=== PATIENT | female | born 1985 | race Caucasian/White ===

== ENCOUNTER → 2017-02-07 | Outpatient (CLI) | payer OTHER, SELFPAY | PROVIDERS: Visit Provider Nurse Practitioner Obstetrics & Gynecology | DX: Z01.419 Encounter for gynecological examination (general) (routine) without abnormal findings (principal) | CPT/HCPCS: 36415; 86592; 86703; 86704; 86708; 86790; 86803; 87340; G0432 ==

== ENCOUNTER → 2018-11-25 14:13 | Outpatient (CLI) | payer OTHER, SELFPAY ==
[2018-11-25 14:48] LABS: Basophils % 0.4 % (0.1-2.0); Eosinophils # 0.1 K/mm3 (0.0-0.4); Eosinophils % 0.6 % (0.1-12.0); Hematocrit 42.5 % (37.0-47.0); Hemoglobin 13.1 g/dL (12.2-16.2); Lymphocytes # 2.1 K/mm3 (0.7-4.5); Lymphocytes % 25.9 % (10-50); Mean Corpuscular HGB Conc 30.9 g/dL (31.8-35.4); Mean Corpuscular Hemoglobin 27.4 pg (27.0-31.2); Mean Corpuscular Volume 88.7 fl (81-99); Mean Platelet Volume 7.5 fl (7.4-10.4); Monocytes # 0.4 K/mm3 (0.1-1.0); Neutrophils # 5.6 K/mm3 (1.8-7.8); Neutrophils % 68.1 % (37.0-80.0); Platelet Count 347 K/mm3 (142-424); Red Cell Distribution Width 13.9 % (11.5-17.5); White Blood Count 8.2 K/mm3 (4.8-10.8)
[2018-11-25 15:28] LABS: Alanine Aminotransferase 36 U/L (12-78); Albumin Level 4.2 gm/dL (3.4-5.0); Albumin/Globulin Ratio 1.4 (1.1-1.8); Alkaline Phosphatase 57 U/L (46-116); Anion Gap 13.8 mEq/L (5-15); Aspartate Amino Transferase 18 U/L (15-37); Bilirubin,Total 0.6 mg/dL (0.2-1.0); Blood Urea Nitrogen 17 mg/dL (7-18); Calcium 9.1 mg/dL (8.5-10.1); Carbon Dioxide 26 mmol/L (21.0-32.0); Chloride 103 mmol/L (98-107); Chol/HDL Ratio 5.7 (1-3.5); Cholesterol 171 mg/dL (140-200); Creatinine,Serum 0.75 mg/dL (0.55-1.02); Estimated Glomerular Filt Rate 90 ml/min (>60); GFR (African American) 108 ML/MIN (>60); Glucose 125 mg/dL (74-106); HDL Cholesterol 30 mg/dL (29-89); LDL Cholesterol 100 mg/dL (0-130); Potassium 3.8 mmoL/L (3.5-5.1); Sodium 139 mmol/L (136-145); T4 (Thyroxine) 12.1 ug/dl (4.7-13.3); Thyroid Stimulating Hormone 0.98 uIU/ml (0.358-3.740); Total Protein,Serum 7.2 gm/dL (6.4-8.2); Triglycerides 207 mg/dL (30-200); VLDL Cholesterol 41 mg/dL (0-40)
[2018-11-27 17:09] LABS: FSH 6.7 mIU/mL (.); LH 8.6 mIU/mL (.)
[2018-11-27 17:10] LABS: Vitamin D 25 Hydroxy 17.7 ng/mL (30.0-100.0)
[2018-11-29 20:01] LABS: Estrogen 89 pg/mL (.)
== END ==
PROVIDERS: Visit Provider Physician Assistant
DX: R53.83 Other fatigue (principal); E55.9 Vitamin D deficiency, unspecified; Z79.899 Other long term (current) drug therapy
CPT/HCPCS: 80053; 80061; 82652; 82672; 83001; 83002; 84436; 84443; 85025

== ENCOUNTER → 2018-12-05 12:17 | Outpatient (CLI) | payer OTHER, SELFPAY | PROVIDERS: Visit Provider Physician Assistant | DX: R73.9 Hyperglycemia, unspecified (principal) | CPT/HCPCS: 36415; 83036 ==

== ENCOUNTER 2019-11-02 10:15 | Emergency (ER) | payer OTHER, SELFPAY ==
[2019-11-02 10:23] VITALS: BP 152/98; PULSE 100; RESP 18; O2SAT 99; BMI 28.6
[2019-11-02 10:32] LABS: UTC Strep Screen (Rapid) Negative (Negative)
--- NOTE | 2019-11-02 10:38 | HMH.EDUTC ---
[facility] [place] Disposition Clinical Impression: Pharyngitis Qualifiers: Pharyngitis/tonsillitis etiology: unspecified etiology Qualified Code(s): J02.9 - Acute pharyngitis, unspecified Sinusitis Qualifiers: Sinusitis location: unspecified location Chronicity: acute Recurrence: non-recurrent Qualified Code(s): J01.90 - Acute sinusitis, unspecified Disposition: Home, Self-Care Condition on Discharge: Good Instructions: Sinusitis, DI for Pharyngitis/Tonsillopharyngitis -- Adult, DI for Sinusitis Additional Instructions: Drink plenty of fluids. Take tylenol or ibuprofen for pain or fever. Take the medications as directed. Follow up with your regular doctor. GO TO THE ER FOR ANY WORSENING SYMPTOMS Prescriptions: Ondansetron [Zofran 4mg ODT] 4 mg PO Q8HP PRN #10 tab.rapdis PRN Reason: Nausea Transmission Status: Received by [email or web address] #[id number] predniSONE [Deltasone 10mg tablet] 10 mg PO BID 3 Days #6 tab Transmission Status: Received by [email or web address] #[id number] Azithromycin [Z-All 250mg Tab*] 250 mg PO UD DOSE PK #6 tab Transmission Status: Received by [email or web address] #[id number] Referrals: Juana Cruz PA [Primary Care Provider] - Forms: Work/School Release Medical Decision Making - Medical Records Medical records reviewed: No: I reviewed the patient's medical records. - Deacon Inquiry Pt receiving controlled substance: No Vital Signs: 11/02/19 10:23 11/02/19 10:52 Temperature 98.6 F Temperature Source Oral Pulse Rate 100 H Pulse Rate [Radial] 100 H Respiratory Rate 18 18 Blood Pressure 152/98 H Blood Pressure [Right Arm] 152/98 H Blood Pressure Mean [Right Arm] 116 Blood Pressure Source Automatic Cuff Blood Pressure Source [Right Arm] Automatic Cuff Blood Pressure Position Sitting Blood Pressure Position [Right Arm] Sitting 02 Sat by Pulse Oximetry 99 Oxygen Delivery Method Room Air Room Air - Lab Data Lab results reviewed: Yes: I reviewed the patient's lab results. Lab Results 11/02/19 10:26: Strep Scn Rapid Clinic Negative Orders (Tests/Meds): ORDERS Category Date Time Status Strep Screen Confirmation Stat Micro 11/02/19 10:26 Received [facility] [place] HPI - General Stated complaint: vomiting, facial and head pain, soa Time Seen by Provider: 11/02/19 10:39 Mode of Arrival: Ambulatory Source of Information: Patient Limitations: No Limitations Description of Symptoms (Recalled from Triage Doc. by RN): vomiting, nose hurts, sore throat. HEENT Symptoms (Recalled from RN notes): Yes Resp Symptoms (Recalled from RN notes): No Skin Symptoms (Recalled from RN notes): No MS Symptoms (Recalled from RN notes): No Functional Status (Recalled from RN notes): wnl - History of Present Illness Provider Complaint: She complains of having sinus pressure for the past 2 days. She started having n/v last night. She denies fever but she has had some chilling today. - Related Data Previous Rx's Medication Instructions Recorded phentermine 37.5 mg tablet 37.5 mg PO DAILY #30 tab 09/18/19 fluconazole 150 mg tablet 150 mg PO Q3D 0 Days #2 tab 10/20/19 Azithromycin [Z-All 250mg Tab*] 250 mg PO UD DOSE PK #6 tab 11/02/19 Ondansetron [Zofran 4mg ODT] 4 mg PO Q8HP PRN #10 tab.rapdis 11/02/19 predniSONE [Deltasone 10mg tablet] 10 mg PO BID 3 Days #6 tab 11/02/19 Allergies Allergy/AdvReac Type Severity Reaction Status Date / Time No Known Allergies Allergy Verified 09/18/19 09:02 - Worker's Comp Is this a Worker's Comp case?: No [facility] History - Hepatitis A Screen Drug use history?: No High risk sexual behaviors?: No History of sexually transmitted infection?: No Currently employed?: No Childcare worker?: No Do you have indoor plumbing?: Yes Do you have electricity?: Yes Attestation statement:: This patient has been screened for Hepatitis A risk factors. I have reviewed the patient's past medical history: Yes Medical History: Reports
[2019-11-02 10:52] VITALS: BP 152/98; PULSE 100; RESP 18; TEMP 37; O2SAT 99
== END 2019-11-02 10:53 | disposition home or self-care (01) ==
PROVIDERS: Emergency Provider Nurse Practitioner Family; PCP Physician Assistant
DX: J02.9 Acute pharyngitis, unspecified (principal); J01.90 Acute sinusitis, unspecified; F41.8 Other specified anxiety disorders; Z90.09 Acquired absence of other part of head and neck; Z90.49 Acquired absence of other specified parts of digestive tract; Z90.79 Acquired absence of other genital organ(s)
CPT/HCPCS: 87880; 99201

== ENCOUNTER 2019-11-24 17:56 | Emergency (ER) | payer OTHER, SELFPAY ==
[2019-11-24 18:44] VITALS: BP 146/84; PULSE 83; RESP 20; TEMP 36.9; O2SAT 100; BMI 29.3
--- NOTE | 2019-11-24 19:00 | HMH.EDUTC ---
[facility] [place] Disposition Clinical Impression: Encounter for laboratory testing for COVID-19 virus, Close exposure to COVID-19 virus Disposition: Home, Self-Care Condition on Discharge: Good Instructions: Preventing the Spread of Coronavirus Discharge Instructions Additional Instructions: *Monitor Temp, Over the counter Motrin or Tylenol as directed/as needed Tylenol every 4 hours and Motrin every 6 hours (as long as your family doctor has told you that you can take it) for fever or pain. and straight to ER if unable to lower temp less than 101.0 after medication given *Warm salt water gargles may help to soothe the throat *Throat Lozenges *Warm fluids like tea with honey may help to soothe the throat *Sleep elevated *Humidifier/Vaporizer *Flonase 2 sprays in each nostril daily but be aware that it may take 2-3 days before you notice improvement Follow up IMMEDIATELY for new or worsening symptoms or no Noticeable improvement over the next 48-72 hours. 911 for difficulty breathing or swallowing You was tested for today for COVID19 your test result should be back later this evening, you may call back later this evening to see if your test results are back and the result You was given a handout with instructions for Self Quarantine and Self isolation for while you wait on test results and what to do if they are positive Prescriptions: Fluticasone Propionate [Flonase 50mcg nasal spray 16gm] 1 spr NS DAILY #1 bottle Transmission Status: Pending to [email or web address] #[id number] Referrals: Juana Cruz PA [Primary Care Provider] - As needed Forms: Work/School Release Time of Disposition: 19:19 Medical Decision Making - Deacon Inquiry Pt receiving controlled substance: No Deacon was queried for this patient: No Vital Signs: 11/24/19 18:44 Temperature 98.4 F Temperature Source Oral Pulse Rate [Right Brachial] 83 Respiratory Rate 20 Blood Pressure [Right Arm] 146/84 H Blood Pressure Mean [Right Arm] 104 Blood Pressure Source [Right Arm] Automatic Cuff Blood Pressure Position [Right Arm] Sitting 02 Sat by Pulse Oximetry 100 Oxygen Delivery Method Room Air Orders (Tests/Meds): ORDERS Category Date Time Status Covid-19 Nasal PCR ([facility]) Routine Lab 11/24/19 18:40 Received [facility] [place] HPI - General Stated complaint: migraine chest congestion covid exposure Time Seen by Provider: 11/24/19 19:00 Mode of Arrival: Ambulatory Source of Information: Patient Limitations: No Limitations Description of Symptoms (Recalled from Triage Doc. by RN): PATIENT STATES SHE HAS BEEN SICK FOR A FEW WEEKS WITH HEADACHE AND CHEST CONGESTION AND STATES LAST WEEK SHE HAD LOST HER SENSE OF TASTE. HER MOTHER TESTED POSITIVE FOR COVID TODAY HEENT Symptoms (Recalled from RN notes): Yes Resp Symptoms (Recalled from RN notes): No Skin Symptoms (Recalled from RN notes): No MS Symptoms (Recalled from RN notes): No Functional Status (Recalled from RN notes): WNL - History of Present Illness Provider Complaint: Patient states that she has been around her mother who tested positive today States that she has been sick on and off for a couple of weeks and last week she loss her taste States that for about a week on and off she has been having a headache and seen PCP several times for it States that today mother tested positive for COVID now she is worried that she may have it too and wanted to get tested - Related Data Previous Rx's Medication Instructions Recorded Fluticasone Propionate [Flonase 1 spr NS DAILY #1 bottle 11/24/19 50mcg nasal spray 16gm] Allergies Allergy/AdvReac Type Severity Reaction Status Date / Time No Known Allergies Allergy Verified 11/20/19 14:50 - Worker's Comp Is this a Worker's Comp case?: No [facility] History - Hepatitis A Screen Drug use history?: No High risk sexual behaviors?: No History of sexually transmitted infection?: No Currently employed?: No Childcare worker?: No Do you have indoor plu
[2019-11-24 19:31] VITALS: BP 146/84; PULSE 83; RESP 20; TEMP 36.9; O2SAT 100
--- NOTE | 2019-11-25 09:08 | PC.NURSE ---
Patient notified of positive COVID results. Educated on strict quarantine and treating of symptoms as they appear.
== END 2019-11-24 19:33 | disposition home or self-care (01) ==
PROVIDERS: Emergency Provider Nurse Practitioner; PCP Physician Assistant
DX: U07.1 COVID-19 (principal); F41.8 Other specified anxiety disorders; Z90.49 Acquired absence of other specified parts of digestive tract; Z90.710 Acquired absence of both cervix and uterus
CPT/HCPCS: 99201; U0003

== ENCOUNTER 2020-04-27 11:35 | Emergency (ER) | payer OTHER, SELFPAY ==
[2020-04-27 11:47] VITALS: BP 169/99; PULSE 90; RESP 19; TEMP 36.8; O2SAT 98; BMI 26.6
[2020-04-27 12:04] LABS: UTC Influenza A Antigen Negative (Negative); UTC Strep Screen (Rapid) Negative (Negative)
[2020-04-27 12:05] LABS: UTC Influenza B Antigen Negative (Negative)
--- NOTE | 2020-04-27 12:07 | HMH.EDUTC ---
[facility] [place] Clinical Impression: Viral syndrome, Exposure to COVID-19 virus Asthma exacerbation Qualifiers: Asthma severity: unspecified severity Asthma persistence: unspecified Qualified Code(s): J45.901 - Unspecified asthma with (acute) exacerbation Disposition: Home, Self-Care Condition on Discharge: Good Instructions: DI for COVID-19 (Suspected or Confirmed ), Preventing the Spread of Coronavirus Discharge Instructions Additional Instructions: Drink plenty of fluids. Take tylenol for pain or fever. Return if you begin to have difficulty breathing. Follow up with your regular doctor. GO TO THE ER FOR ANY WORSENING SYMPTOMS Prescriptions: Ondansetron [Zofran 4mg ODT] 4 mg PO Q8HP PRN #20 tab.rapdis PRN Reason: Nausea Transmission Status: Received by [facility] #[id number] Azithromycin [Z-All 250mg Tab*] 250 mg PO UD DOSE PK #6 tab Transmission Status: Received by [facility] #[id number] Referrals: Juana Cruz PA [Primary Care Provider] - Forms: Work/School Release Time of Disposition: 12:15 Medical Decision Making - Medical Records Medical records reviewed: No: I reviewed the patient's medical records. - Deacon Inquiry Pt receiving controlled substance: No Vital Signs: 04/27/20 11:47 04/27/20 12:17 Temperature 98.2 F 98 F Temperature Source Oral Pulse Rate 95 H Pulse Rate [Right] 90 Respiratory Rate 19 19 Blood Pressure 161/98 H Blood Pressure [Right Arm] 169/99 H Blood Pressure Mean [Right Arm] 122 Blood Pressure Source [Right Arm] Automatic Cuff Blood Pressure Position [Right Arm] Sitting 02 Sat by Pulse Oximetry 98 Oxygen Delivery Method Room Air - Lab Data Lab results reviewed: Yes: I reviewed the patient's lab results. Lab Results 04/27/20 12:01: Influenza Type A Ag Negative, Influenza Type B Ag Negative 04/27/20 12:01: Strep Scn Rapid Clinic Negative Orders (Tests/Meds): ORDERS Category Date Time Status Strep Screen Confirmation Stat Micro 04/27/20 12:01 [place] [facility] [place] - General Stated complaint: weak, achy, chills,chest heaviness Time Seen by Provider: 04/27/20 12:07 Mode of Arrival: Ambulatory Source of Information: Patient Limitations: No Limitations Description of Symptoms (Recalled from Triage Doc. by RN): pt is chilling/ sweating, body aches, KAY, N/V, lung pressure similar to her asthma when it flares up, or when she gets upper respiratory infections. HEENT Symptoms (Recalled from RN notes): Yes (KAY) Resp Symptoms (Recalled from RN notes): Yes (lung pressure similar to her asthma attacks) Skin Symptoms (Recalled from RN notes): No MS Symptoms (Recalled from RN notes): Yes (julio cesar aches) Functional Status (Recalled from RN notes): chills and sweating - History of Present Illness Provider Complaint: She states that for the past 1 day she has had chills, body aches, and feels like her asthma is going to flare up. She denies any shortness of breath. - Related Data Previous Rx's Medication Instructions Recorded duloxetine 30 mg capsule,delayed 30 mg PO DAILY #30 cap 12/16/19 release phentermine 37.5 mg tablet 37.5 mg PO DAILY #30 tab 04/05/20 Azithromycin [Z-All 250mg Tab*] 250 mg PO UD DOSE PK #6 tab 04/27/20 Ondansetron [Zofran 4mg ODT] 4 mg PO Q8HP PRN #20 tab.rapdis 04/27/20 Allergies Allergy/AdvReac Type Severity Reaction Status Date / Time No Known Allergies Allergy Verified 04/27/20 11:57 - Worker's Comp Is this a Worker's Comp case?: No [facility] History - Hepatitis A Screen Drug use history?: No High risk sexual behaviors?: No History of sexually transmitted infection?: No Currently employed?: No Childcare worker?: No Do you have indoor plumbing?: Yes Do you have electricity?: Yes Attestation statement:: This patient has been screened for Hepatitis A risk factors. I have reviewed the patient's past medical history: Yes Medical History: Reports:: Anxiety, Depres
[2020-04-27 12:17] VITALS: BP 161/98; PULSE 95; RESP 19; TEMP 36.6
== END 2020-04-27 12:19 | disposition home or self-care (01) ==
PROVIDERS: Emergency Provider Nurse Practitioner Family; PCP Physician Assistant
DX: Z20.822 Contact with and (suspected) exposure to COVID-19 (principal); B34.9 Viral infection, unspecified; J45.901 Unspecified asthma with (acute) exacerbation; Z86.16 Personal history of COVID-19; F41.8 Other specified anxiety disorders
CPT/HCPCS: 87804; 87880; 99202; G0463; U0003

== ENCOUNTER → 2020-05-23 14:21 | Outpatient (CLI) | payer OTHER, SELFPAY ==
--- NOTE | 2020-05-23 | US_ITS ---
APPROVED REPORT Exam Type: Ankle to Brachial Index Fitness Studies Teacher: Laurie Urena CRT Indications Claudication: Rest Pain: Pressures/Indices Right Indices Left Indices Brachial 138.00 mmHg Brachial 135.00 mmHg Low Thigh 144.00 mmHg 1.04 Low Thigh 137.00 mmHg 0.99 Calf 128.00 mmHg 0.93 Calf 132.00 mmHg 0.96 Ankle(PT) 134.00 mmHg 0.97 Ankle(PT) 130.00 mmHg 0.94 Ankle(DP) 135.00 mmHg 0.98 Ankle(DP) 123.00 mmHg 0.89 Digit 91.00 mmHg 0.66 Digit 100.00 mmHg 0.72 Findings R LES 1.0 L LES 0.9 R TBI 0.7 L TBI 0.7 Normal waveforms Normal pulses Conclusion R LES 1.0 L LES 0.9 R TBI 0.7 L TBI 0.7 Normal waveforms Normal pulses No evidence significant arterial disease throughout the right and left lower extremities as evidenced by normal resting PVR waveforms and normal resting indices. Electronically signed by : Rudy Rucker MD 05/24/2020 17:08:10
--- NOTE | 2020-05-23 14:24 | CA_ITS ---
APPROVED REPORT Left Lower Extremity Venous Study for DVT. Nurse Administrator: CT Indications Lower Extremity Pain: Left Lower Extremity Edema: Left pain swelling left LE, cold lle, numbness, discoloration Vein Imaging CFV (L): compressive, spontaneous, phasic, augmentation SFJ (L): compressive, spontaneous, phasic, augmentation FEM (L): compressive, spontaneous, phasic, augmentation POP (L): compressive, spontaneous, phasic, augmentation DFV (L): compressive, spontaneous, phasic, augmentation PTV (L): compressive, spontaneous, phasic, augmentation GSV (L): compressive, spontaneous, phasic, augmentation SSV (L): compressive, spontaneous, phasic, augmentation Peroneals (L):compressive, spontaneous, phasic, augmentation GAS (L): compressive, spontaneous, phasic, augmentation Findings LLE negative for DVT/SVT. Vessels are compressible. Conclusion LLE negative for DVT/SVT. Vessels are compressible. Electronically signed by : Rudy Rucker MD 05/23/2020 15:56:37
== END ==
PROVIDERS: PCP Physician Assistant; Visit Provider Physician Assistant
DX: M79.605 Pain in left leg (principal); M79.89 Other specified soft tissue disorders
CPT/HCPCS: 93923; 93971

== ENCOUNTER → 2020-05-25 18:55 | Outpatient (CLI) | payer OTHER, SELFPAY ==
--- NOTE | 2020-05-25 19:12 | XR_ITS ---
PROCEDURE: XR LUMBAR SPINE 6V W BENDING CLINICAL INDICATION: Back pain, numbness in left leg COMPARISON: No exams were available for comparison FINDINGS: No fracture or dislocation. No lytic or blastic change. There is normal mineralization. Normal alignment. Flexion and extension views are obtained showing no abnormal subluxation. Other findings:None. IMPRESSION: Negative lumbar spine. No abnormal subluxation in flexion or extension. Dictated by: Rudy Rucker MD 05/26/2020 06:15 Rudy Rucker MD in [place] 05/26/2020 06:15
== END ==
PROVIDERS: PCP Physician Assistant; Visit Provider Physician Assistant
DX: M54.5 Low back pain (principal); R20.0 Anesthesia of skin
CPT/HCPCS: 72114

== ENCOUNTER → 2020-06-03 09:59 | Outpatient (CLI) | payer OTHER, SELFPAY ==
[2020-06-03 11:08] LABS: Erythrocyte Sedimentation Rate 11 mm/hr (0-20)
== END ==
PROVIDERS: Visit Provider Urology
DX: I70.213 Atherosclerosis of native arteries of extremities with intermittent claudication, bilateral legs (principal)
CPT/HCPCS: 36415; 85651

== ENCOUNTER → 2020-07-19 13:24 | Outpatient (CLI) | payer OTHER, SELFPAY | PROVIDERS: PCP Physician Assistant; Visit Provider Internal Medicine Cardiovascular Disease | DX: R06.02 Shortness of breath (principal) | CPT/HCPCS: 93306 ==

== ENCOUNTER → 2020-10-27 17:06 | Outpatient (CLI) | payer OTHER, SELFPAY | PROVIDERS: Visit Provider Physician Assistant | DX: R31.9 Hematuria, unspecified (principal) | CPT/HCPCS: 87086; 87088; 87186 ==

== ENCOUNTER → 2020-12-29 18:21 | Outpatient (CLI) | payer OTHER, SELFPAY | PROVIDERS: Visit Provider Physician Assistant | DX: N39.0 Urinary tract infection, site not specified (principal); B96.20 Unspecified Escherichia coli [E. coli] as the cause of diseases classified elsewhere | CPT/HCPCS: 87086; 87088; 87186 ==

== ENCOUNTER 2021-02-28 12:22 | Emergency (ER) | payer OTHER, SELFPAY ==
[2021-02-28 13:50] VITALS: BP 149/89; PULSE 99; RESP 19; TEMP 36.6; O2SAT 97; BMI 30.9
[2021-02-28 14:03] LABS: UTC Influenza A Antigen Negative (Negative)
[2021-02-28 14:04] LABS: UTC Influenza B Antigen Negative (Negative)
[2021-02-28 14:04] LABS: UTC Strep Screen (Rapid) Negative (Negative)
--- NOTE | 2021-02-28 14:21 | HMH.EDUTC ---
[facility] [place] Clinical Impression: Viral syndrome Disposition: Home, Self-Care Condition on Discharge: Good Instructions: DI for COVID-19 (Suspected or Confirmed ), Preventing the Spread of Coronavirus Discharge Instructions, DI for Cough -- Adult Additional Instructions: *Monitor Temp, Over the counter Motrin or Tylenol as directed/as needed Tylenol every 4 hours and Motrin every 6 hours (as long as your family doctor has told you that you can take it) for fever or pain. and straight to ER if unable to lower temp less than 101.0 after medication given *Warm salt water gargles may help to soothe the throat *Throat Lozenges *Warm fluids like tea with honey may help to soothe the throat *Sleep elevated *Humidifier/Vaporizer *Bromfed may cause drowsiness. Know how it effects you (your child) before driving, caring for small child, or sending your child to school. Not other antihistamines/allergy medications while taking bromfed Your throat swab was sent for culture. Those results are typically sent to your primary care. Be sure to follow up in 2-3 days with your family doctor/primary care physician if no improvement so they can review those result and treat if necessary. If you don?t have a primary care doctor, I recommend you get one but in the mean time, you will have to return to a walk in clinic Follow up IMMEDIATELY for new or worsening symptoms or no Noticeable improvement over the next 48-72 hours. 911 for difficulty breathing or swallowing You were tested for today for COVID19 your test result should be back in the next 24-48 hours, you may check your COVID test result on the [facility] My Health Portal if you have trouble logging on you may call support for assistance You was given a handout with instructions for Self Quarantine and Self isolation for while you wait on test results and what to do if they are positive If you are positive the Health Dept will be contacting you also Make sure to take your Vitamins Vit. C Vit D and Zinc if you can take them Prescriptions: Brompheniramine/Pseudoephed/Dm [Bromfed Dm Cough Syrup] 5 - 10 ml PO Q46H PRN #200 ml PRN Reason: Cough Transmission Status: Pending to [facility] #[id number] Referrals: Juana Cruz PA [Primary Care Provider] - Forms: Work/School Release Time of Disposition: 14:29 Medical Decision Making - Deacon Inquiry Pt receiving controlled substance: No Deacon was queried for this patient: No Vital Signs: 02/28/21 13:50 Temperature 97.8 F Temperature Source Oral Pulse Rate [Right Brachial] 99 H Respiratory Rate 19 Blood Pressure [Right Arm] 149/89 H Blood Pressure Mean [Right Arm] 109 Blood Pressure Source [Right Arm] Automatic Cuff Blood Pressure Position [Right Arm] Sitting 02 Sat by Pulse Oximetry 97 Oxygen Delivery Method Room Air - Lab Data Lab results reviewed: Yes: I reviewed the patient's lab results. Lab Results 02/28/21 13:47: Strep Scn Rapid Clinic Negative 02/28/21 13:48: Influenza Type A Ag Negative, Influenza Type B Ag Negative Orders (Tests/Meds): ORDERS Category Date Time Status Covid-19 Nasal PCR ([facility]) Routine Lab 02/28/21 13:47 Received Strep Screen Confirmation Routine Micro 02/28/21 13:47 Received [facility] UTC HPI - General Stated complaint: sore throat,cough,headache Time Seen by Provider: 02/28/21 14:21 Mode of Arrival: Ambulatory Source of Information: Patient Limitations: No Limitations Description of Symptoms (Recalled from Triage Doc. by RN): PATIENT C/O SORE THROAT, CHILLS, HEADACHE AND COUGH SINCE LAST NIGHT HEENT Symptoms (Recalled from RN notes): Yes Resp Symptoms (Recalled from RN notes): No Skin Symptoms (Recalled from RN notes): No MS Symptoms (Recalled from RN notes): No Functional Status (Recalled from RN notes): WNL - History of Present Illness Provider Complaint: Patient states that she started feeling bad yesterday State that she has been having sorethroat, cough, body ach
[2021-02-28 14:35] VITALS: BP 149/89; PULSE 99; RESP 19; TEMP 36.6; O2SAT 97
== END 2021-02-28 14:40 | disposition home or self-care (01) ==
PROVIDERS: Emergency Provider Nurse Practitioner; PCP Physician Assistant
DX: U07.1 COVID-19 (principal); F41.8 Other specified anxiety disorders; J45.909 Unspecified asthma, uncomplicated
CPT/HCPCS: 87804; 87880; 99203; C9803; G0463; U0003; U0005

== ENCOUNTER 2021-04-05 14:37 | Emergency (ER) | payer OTHER, SELFPAY ==
[2021-04-05 15:25] VITALS: BP 141/69; PULSE 71; RESP 17; TEMP 36.8; O2SAT 99; BMI 28.3
--- NOTE | 2021-04-05 16:08 | HMH.EDUTC ---
[facility] [place] Disposition Clinical Impression: Otitis media Qualifiers: Otitis media type: unspecified Laterality: bilateral Qualified Code(s): H66.93 - Otitis media, unspecified, bilateral Disposition: Home, Self-Care Condition on Discharge: Good Instructions: Middle Ear Infection, Amoxicillin Additional Instructions: *Monitor Temp, Over the counter Motrin or Tylenol as directed/as needed Tylenol every 4 hours and Motrin every 6 hours (as long as your family doctor has told you that you can take it) for fever or pain. and straight to ER if unable to lower temp less than 101.0 after medication given *Warm salt water gargles may help to soothe the throat *Throat Lozenges *Warm fluids like tea with honey may help to soothe the throat *Sleep elevated *Humidifier/Vaporizer Take medication as prescribed Follow up IMMEDIATELY for new or worsening symptoms or no Noticeable improvement over the next 48-72 hours. 911 for difficulty breathing or swallowing Prescriptions: Amoxicillin [Amoxicillin 875MG Tab] 875 mg PO Q12H #20 tab Transmission Status: Pending to [facility] #[id number] Fluticasone Propionate [Flonase 50mcg nasal spray 16gm] 1 spr NS DAILY #1 each Transmission Status: Pending to [facility] #[id number] Referrals: Juana Cruz PA [Primary Care Provider] - As needed Forms: Work/School Release Medical Decision Making - Deacon Inquiry Pt receiving controlled substance: No Deacon was queried for this patient: No Vital Signs: 04/05/21 15:25 Temperature 98.2 F Temperature Source Oral Pulse Rate [Right Brachial] 71 Respiratory Rate 17 Blood Pressure [Right Arm] 141/69 H Blood Pressure Mean [Right Arm] 93 Blood Pressure Source [Right Arm] Automatic Cuff Blood Pressure Position [Right Arm] Sitting 02 Sat by Pulse Oximetry 99 Oxygen Delivery Method Room Air [facility] [place] HPI - General Stated complaint: lt ear pain Time Seen by Provider: 04/05/21 16:08 Mode of Arrival: Ambulatory Source of Information: Patient Limitations: No Limitations Description of Symptoms (Recalled from Triage Doc. by RN): an ear pain HEENT Symptoms (Recalled from RN notes): Yes Resp Symptoms (Recalled from RN notes): No Skin Symptoms (Recalled from RN notes): No MS Symptoms (Recalled from RN notes): No Functional Status (Recalled from RN notes): wnl - History of Present Illness Provider Complaint: Patient states that she has been having pain in both ears, sinus pressure and sore throat State that it has continued to get worse over the last couple of days States that today she was feeling worse so she came in to get checked out - Related Data Previous Rx's Medication Instructions Recorded phentermine 37.5 mg tablet 37.5 mg PO DAILY #30 tab 03/09/21 fluconazole 150 mg tablet 150 mg PO Q3D 0 Days #2 tab 03/21/21 Amoxicillin [Amoxicillin 875MG 875 mg PO Q12H #20 tab 04/05/21 Tab] Fluticasone Propionate [Flonase 1 spr NS DAILY #1 each 04/05/21 50mcg nasal spray 16gm] Allergies Allergy/AdvReac Type Severity Reaction Status Date / Time No Known Allergies Allergy Verified 03/09/21 11:17 - Worker's Comp Is this a Worker's Comp case?: No [facility] History - Hepatitis A Screen Drug use history?: No High risk sexual behaviors?: No History of sexually transmitted infection?: No Currently employed?: No Childcare worker?: No Do you have indoor plumbing?: Yes Do you have electricity?: Yes Attestation statement:: This patient has been screened for Hepatitis A risk factors. I have reviewed the patient's past medical history: Yes Medical History: Reports:: Anxiety, Asthma, Depression, Gall Bladder Disease, Gastroesophageal Reflux Disease(GERD), Heart Murmur Denies:: Cancer, Diabetes Mellitus Type 1, Diabetes Mellitus Type 2, Hyperlipidemia, Hypertension, MRSA, Seizures Other Medical History: Reports: Other Laterality Cases: Bilateral: Myringotomy (Ear Tubes), Tonsillectomy Other Surgeries: Yes: Cholecyste
[2021-04-05 16:29] VITALS: BP 141/69; PULSE 71; RESP 17; TEMP 36.8; O2SAT 99
== END 2021-04-05 16:30 | disposition home or self-care (01) ==
PROVIDERS: Emergency Provider Nurse Practitioner; PCP Physician Assistant
DX: H66.93 Otitis media, unspecified, bilateral (principal)
CPT/HCPCS: 99202; G0463

== ENCOUNTER 2021-08-16 19:45 | Emergency (ER) | payer OTHER, SELFPAY ==
[2021-08-16 19:48] VITALS: BP 142/90; PULSE 92; RESP 18; TEMP 36.6; O2SAT 100; BMI 30.7
[2021-08-16 21:03] LABS: Basophils % 0.4 % (0.1-2.0); Eosinophils # 0.1 K/mm3 (0.0-0.4); Eosinophils % 1.2 % (0.1-12.0); Hemoglobin 12.5 g/dL (12.2-16.2); Lymphocytes # 2.3 K/mm3 (0.7-4.5); Lymphocytes % 27.4 % (10-50); Mean Corpuscular HGB Conc 34.6 g/dL (31.8-35.4); Mean Corpuscular Hemoglobin 28.9 pg (27.0-31.2); Mean Corpuscular Volume 83.4 fl (81-99); Mean Platelet Volume 6.4 fl (7.4-10.4); Monocytes # 0.4 K/mm3 (0.1-1.0); Neutrophils # 5.6 K/mm3 (1.8-7.8); Platelet Count 247 K/mm3 (142-424); Red Blood Count 4.31 M/mm3 (4.20-5.40); Red Cell Distribution Width 13.5 % (11.5-17.5); White Blood Count 8.5 K/mm3 (4.8-10.8)
[2021-08-16 21:17] LABS: Alanine Aminotransferase 26 U/L (12-78); Albumin Level 4.2 g/dl (3.5-5.0); Albumin/Globulin Ratio 1.5 (1.1-1.8); Alkaline Phosphatase 65 U/L (38-126); Anion Gap 10.3 mEq/L (5-15); Aspartate Amino Transferase 25 U/L (14-36); Blood Urea Nitrogen 11 mg/dl (7-17); Calcium 9.4 mg/dl (8.4-10.2); Carbon Dioxide 29 mmol/L (22.0-30.0); Chloride 105 mmol/L (98-107); Creatinine Clearance Estimated 169 mL/min (50-200); Estimated Glomerular Filt Rate 114 ml/min (>60); GFR (African American) 138 ML/MIN (>60); Globulin 2.8 g/dL (1.3-3.2); Glucose 118 mg/dl (74-100); Potassium 4.3 mmoL/L (3.5-5.1); Sodium 140 mmol/L (136-145)
[2021-08-16 21:23] LABS: C-Reactive Protein 5.1 mg/L (0-4)
[2021-08-16 21:31] LABS: Bilirubin,Total 0.1 mg/dl (0.2-1.3)
[2021-08-16 21:35] LABS: Erythrocyte Sedimentation Rate 21 mm/hr (0-20)
[2021-08-16 21:37] LABS: Procalcitonin 0.047 ng/mL (0.0-2.0)
--- NOTE | 2021-08-16 22:00 | HMH.EDHA ---
ED Disposition Clinical Impression: Headache Qualifiers: Headache type: cluster Headache chronicity pattern: episodic headache Intractability: not intractable Qualified Code(s): G44.019 - Episodic cluster headache, not intractable Disposition: Home, Self-Care Condition on Discharge: Good Instructions: DI for Headache Additional Instructions: call pcp in am Referrals: Juana Cruz PA [Primary Care Provider] - - Critical Care Critical Care Time: No Attestation: On 08/16/21, the high probability of a clinically significant, sudden or life threatening deterioration of the following system(s) required my full and direct attention, intervention and personal management. The time I documented below is in addition to time spent performing reported procedures but includes the following listed in this critical care notation. Medical Decision Making - Medical Records Medical records reviewed: Yes: I reviewed the patient's medical records. - Deacon Inquiry Pt receiving controlled substance: No Vital Signs: 08/16/21 19:48 Temperature 97.9 F Temperature Source Oral Pulse Rate [Right] 92 H Respiratory Rate 18 Blood Pressure [Right Arm] 142/90 H Blood Pressure Mean [Right Arm] 107 02 Sat by Pulse Oximetry 100 - Lab Data Lab results reviewed: Yes: I reviewed the patient's lab results. Lab Results 08/16/21 20:51: WBC 8.5, RBC 4.31, Hgb 12.5, Hct 36.0 L, MCV 83.4, MCH 28.9, MCHC 34.6, RDW 13.5, Plt Count 247, MPV 6.4 L, Neut % (Auto) 66.0, Lymph % (Auto) 27.4, Starke % (Auto) 5.0, Eos % (Auto) 1.2, Baso % (Auto) 0.4, Neut # (Auto) 5.6, Lymph # (Auto) 2.3, Starke # (Auto) 0.4, Eos # (Auto) 0.1, Baso # (Auto) 0.0, ESR 21 H 08/16/21 20:51: Sodium 140, Potassium 4.3, Chloride 105, Carbon Dioxide 29, Anion Gap 10.3, BUN 11, Creatinine 0.60, Estimated Creat Clear 169, Estimated GFR 114, Est GFR ( Amer) 138, Glucose 118 H, Calcium 9.4, Total Bilirubin 0.1 L, AST 25, ALT 26, Alkaline Phosphatase 65, C-Reactive Protein 5.1 H, Total Protein 7.0, Albumin 4.2, Globulin 2.8, Albumin/Globulin Ratio 1.5, Procalcitonin 0.047 Result diagrams: 08/16/21 20:51 08/16/21 20:51 Orders (Tests/Meds): ED MEDICATIONS Generic Name Dose Route Start Last Admin Trade Name Freq PRN Reason Stop Dose Admin Sodium Chloride 1,000 mls @ 999 mls/hr 08/16/21 21:30 08/16/21 21:23 Sod Chlor 0.9% 1000ml Bag IV 08/16/21 22:30 999 mls/hr .Q1H1M BUSHRA Administration Discontinued Medications Generic Name Dose Route Start Last Admin Trade Name Freq PRN Reason Stop Dose Admin Diphenhydramine HCl 50 mg 08/16/21 20:43 08/16/21 21:22 Diphenhydramine 50mg/Ml Vial IV 08/16/21 20:44 50 mg ONCE ONE Administration Ketorolac Tromethamine 30 mg 08/16/21 20:43 08/16/21 21:22 Ketorolac 30mg/Ml Vial IV 08/16/21 20:44 30 mg ONCE ONE Administration Metoclopramide HCl 10 mg 08/16/21 20:43 08/16/21 21:22 Metoclopramide Hcl 10mg/2ml Vial IVP 08/16/21 20:44 10 mg ONCE ONE Administration Promethazine HCl 25 mg 08/16/21 20:43 08/16/21 21:22 Promethazine Hcl 25mg/Ml 1ml Vial IV 08/16/21 20:44 25 mg ONCE ONE Administration Sodium Chloride 25 ml 08/16/21 20:43 08/16/21 21:23 Sodium Chloride 0.9% 25ml Bag IV 08/16/21 20:44 25 ml ONCE ONE Administration Medical Decision Narrative: pt with acute santoro and improved with meds Headache HPI - General Chief Complaint: Headache Stated Complaint: Cluster Headaches Time Seen by Provider: 08/16/21 22:00 Mode of Arrival: Ambulatory Source of Information: Patient, Medical Record Limitations: No Limitations Description of Symptoms (Recalled from ER Triage Doc. by RN): pt states has had cluster headache since june 15. pt c/o Santoro becoming worse since 4am this morning. - History of Present Illness HPI Narrative: pt with acute exacerbation of acute santoro - possible cluster and has pending neuro appt MD Complaint: headache Onset (ago): day(s) On
[2021-08-16 22:08] VITALS: BP 134/78; PULSE 90; RESP 18; TEMP 36.6; O2SAT 100
== END 2021-08-16 22:13 | disposition home or self-care (01) ==
PROVIDERS: Emergency Provider Emergency Medicine; PCP Physician Assistant
DX: G44.019 Episodic cluster headache, not intractable (principal)
CPT/HCPCS: 80053; 84145; 85025; 85651; 86140; 96361; 96374; 96375; 99284

== ENCOUNTER → 2021-08-25 07:14 | Outpatient (CLI) | payer OTHER, SELFPAY ==
--- NOTE | 2021-08-25 07:14 | MR_ITS ---
FINAL REPORT CLINICAL HISTORY: Severe, incapacitating headache, history of [employer] ab.Constant headache for 3months. dizziness, blurred vision and sweating for unknown reasons. FINDINGS: Multi planar MR imaging was obtained through the brain without contrast. The midline structures appear intact. There is no evidence of Chiari malformation. On T2 and flair axial images there is minimal increased signal in the deep white matter involving the posterior parietal region that is nonspecific but abnormal for age. On diffusion-weighted images there is no evidence of restricted diffusion. The visualized paranasal sinuses demonstrate normal signal voids. The seventh and eighth nerve root complexes are intact. There are a multitude of signal abnormalities in the scalp bilaterally. The largest scalp abnormality is in the parietal region measuring 1.5 cm. IMPRESSION: Multiple signal abnormalities in the scalp could represent sebaceous cysts or neurofibromas . Minimal deep white matter signal abnormalities are nonspecific but abnormal for age. Reviewed, Interpreted and Dictated by Stoney Recinos MD Transcribed by Swapnil Connor Authenticated and [facility]
== END ==
PROVIDERS: PCP Physician Assistant; Visit Provider Specialist
DX: R51.9 Headache, unspecified (principal); Q82.9 Congenital malformation of skin, unspecified
CPT/HCPCS: 70551

== ENCOUNTER → 2021-09-04 14:06 | Outpatient (CLI) | payer OTHER, SELFPAY ==
--- NOTE | 2021-09-04 14:06 | CT_ITS ---
FINAL REPORT TECHNIQUE: Thin section axial images were obtained from skull base to vertex without contrast. This study was performed with techniques to keep radiation doses as low as reasonably achievable (ALARA). Individualized dose reduction techniques using automated exposure control or adjustment of mA and/or kV according to the patient's size were employed. CLINICAL HISTORY: abnormal MRI Brain FINDINGS: There is no mass effect or midline shift. There is no hydrocephalus. The ventricles are symmetric in size and configuration. There is no extra-axial or intraparenchymal hemorrhage. The posterior fossa is without acute abnormality. The basilar cisterns are preserved. The soft tissues are without acute abnormality. No acute osseous abnormality is identified. IMPRESSION: No acute intracranial abnormality. Reviewed, Interpreted and Dictated by Lacy Hope MD Transcribed by Jaz Karimi Authenticated and [facility]
== END ==
PROVIDERS: PCP Physician Assistant; Visit Provider Specialist
DX: G43.909 Migraine, unspecified, not intractable, without status migrainosus (principal); G44.009 Cluster headache syndrome, unspecified, not intractable; R90.89 Other abnormal findings on diagnostic imaging of central nervous system
CPT/HCPCS: 70450

== ENCOUNTER → 2021-09-19 07:08 | Outpatient (CLI) | payer OTHER, SELFPAY ==
[2021-09-19 18:53] LABS: Adenovirus,PCR Not Detected (NotDetected); Bordetella Pertussis Not Detected (NotDetected); Chlamydophila Pneumoniae, PCR Not Detected (NotDetected); Coronavirus 19, PCR Not Detected (NotDetected); Coronavirus 229E Not Detected (NotDetected); Coronavirus NL63 Not Detected (NotDetected); Coronavirus OC43 Not Detected (NotDetected); Coronovirus HKU1,PCR Not Detected (NotDetected); Human Metapneumovirus Not Detected (NotDetected); Influenza A, PCR Not Detected (NotDetected); Influenza AH1, 2009 Not Detected (NotDetected); Influenza AH1, PCR Not Detected (NotDetected); Influenza AH3,PCR Not Detected (NotDetected); Influenza B, PCR Not Detected (NotDetected); Mycoplasma Pneumoniae, PCR Not Detected (NotDetected); Parainfluenza 1, PCR Not Detected (NotDetected); Parainfluenza 2, PCR Not Detected (NotDetected); Parainfluenza 3, PCR Not Detected (NotDetected); Parainfluenza 4, PCR Not Detected (NotDetected); Respiratory Syncytial Virus Not Detected (NotDetected); Rhinovirus/Enterovirus Not Detected (NotDetected)
== END ==
PROVIDERS: PCP Physician Assistant; Visit Provider Physician Assistant
DX: Z20.822 Contact with and (suspected) exposure to COVID-19 (principal); R51.9 Headache, unspecified
CPT/HCPCS: 87581; 87632; 87798; C9803; U0003; U0005

== ENCOUNTER → 2021-11-02 09:13 | Outpatient (CLI) | payer OTHER, SELFPAY | PROVIDERS: PCP Physician Assistant; Visit Provider Specialist | DX: G47.30 Sleep apnea, unspecified (principal); G47.00 Insomnia, unspecified | CPT/HCPCS: 94762 ==

== ENCOUNTER → 2022-01-08 14:53 | Outpatient (CLI) | payer OTHER, SELFPAY | PROVIDERS: PCP Physician Assistant; Visit Provider Podiatrist | DX: M79.671 Pain in right foot (principal) ==

== ENCOUNTER 2022-02-08 08:02 | Emergency (ER) | payer OTHER, SELFPAY ==
[2022-02-08 08:10] VITALS: BP 132/83; PULSE 105; RESP 19; TEMP 37.3; O2SAT 99; BMI 32.8
--- NOTE | 2022-02-08 08:30 | EXP.UTC ---
Discharge Plan Disposition Patient Disposition: Home, Self-Care Condition: Good Prescriptions Prescriptions: New amoxicillin 875 mg tablet 875 mg PO BID Qty: 20 0RF fluticasone propionate [Flonase Allergy Relief] 50 mcg/actuation spray,suspension 1 spray intranasal DAILY Qty: 16 0RF Rx Instructions: administer into each nostril No Action Emgality Syringe 300 mg/3 mL (100 mg/mL x 3) syringe 300 mg SQ QMONTH Qty: 3 3RF Rx Instructions: administer as three 100 mg injections at separate sites ondansetron 8 mg tablet,disintegrating 8 mg PO Q8H PRN (Reason: nausea and vomiting) Qty: 30 0RF desvenlafaxine succinate [Pristiq] 50 mg tablet extended release 24 hr 50 mg PO DAILY Qty: 30 1RF phentermine [Adipex-P] 37.5 mg tablet 37.5 mg PO DAILY Qty: 30 0RF Rx Instructions: must administer 30 minutes before or 1-2 hours after breakfast Referrals Follow up/Referrals: Juana Cruz PA [Primary Care Provider] - See instructions Activity Restrictions/Add. Instructions Additional Instructions/Restrictions: Take medication as prescribed Use flonase as prescribed Follow up with your Family Doctor if no improvement or any worsening of symptoms Straight to ER if any life threatening symptoms Clinical Impressions Clinical Impression: Otitis media Instructions Patient Instructions: Middle Ear Infection, Amoxicillin Discharge ED Provider: Bisi Freitas [facility] General Stated complaint: ear pain Mode of Arrival: Ambulatory Source of Information: Patient Limitations: No Limitations Time Seen by Provider: 02/08/22 08:30 Description of Symptoms (Recalled from Triage Doc. by RN): PATIENT C/O BILATERAL EAR PAIN AND DIZZINESS SINCE LAST NIGHT HEENT Symptoms (Recalled from RN notes): Yes Resp Symptoms (Recalled from RN notes): No Skin Symptoms (Recalled from RN notes): No MS Symptoms (Recalled from RN notes): No Functional Status (Recalled from RN notes): WNL History of Present Illness Provider Complaint: Patient states that she has been having pain on and off in her left ear but last night she started having pain in both ears and felt a little dizzy at times States that this morning she was still having pain so she came in Related Data Previous Rx's Medication Instructions Recorded ondansetron 8 mg disintegrating 8 mg PO Q8H PRN nausea and 07/17/21 tablet vomiting #30 tabs desvenlafaxine succinate 50 mg 50 mg PO DAILY #30 tabs 12/29/21 tablet,extended release 24 hr (Pristiq) galcanezumab-gnlm 300 mg/3 mL (100 300 mg (3 mL) SQ QMONTH #3 mL 01/08/22 mg/mL x 3) subcutaneous syringe (Emgality) phentermine 37.5 mg tablet 37.5 mg PO DAILY #30 tabs 02/07/22 (Adipex-P) amoxicillin 875 mg tablet 875 mg PO BID #20 tabs 02/08/22 fluticasone propionate 50 1 spray intranasal DAILY #16 grams 02/08/22 mcg/actuation nasal spray,suspension (Flonase Allergy Relief) Allergies Allergy/AdvReac Type Severity Reaction Status Date / Time No Known Allergies Allergy Verified 02/07/22 09:18 Worker's Comp Is this a Worker's Comp case?: No [facility] Disclaimer: The information contained in this section may have been updated after the patient was seen, as this information can be updated by other users. Medical History (Updated 02/08/22 @ 08:37 by Bisi Freitas APRN) Abnormal weight Anxiety Asthma BMI 29.0-29.9,adult Cluster headaches Depression Fatigue Migraine Posttraumatic stress disorder Surgical History (Updated 02/08/22 @ 08:28 by Linda Louis RN) History of section History of hysterectomy History of tonsillectomy S/P partial hysterectomy Family History Other Cancer Coronary artery disease Diabetes Kidney disease Social History (Updated 02/08/22 @ 08:29 by Linda Louis RN) Smoking Status: Never smoker second hand exposure: Yes (her boyfriend does)
[2022-02-08 08:37] VITALS: BP 132/83; PULSE 105; RESP 19; TEMP 37.3; O2SAT 99
== END 2022-02-08 08:45 | disposition home or self-care (01) ==
PROVIDERS: Emergency Provider Nurse Practitioner; PCP Physician Assistant
DX: H66.90 Otitis media, unspecified, unspecified ear (principal)
CPT/HCPCS: 99212; G0463

== ENCOUNTER → 2022-02-08 08:57 | Outpatient (CLI) | payer OTHER, SELFPAY ==
--- NOTE | 2022-02-08 09:01 | XR_ITS ---
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 There is no acute fracture or dislocation. There are small posterior and plantar calcaneal spurs. The joint spaces are intact. The soft tissues are unremarkable. IMPRESSION: Small calcaneal spurs. Reviewed, Interpreted and Dictated by Leandro Reeder III, MD Transcribed by Swapnil Connor Authenticated and [facility]
--- NOTE | 2022-02-08 09:01 | XR_ITS ---
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 There is a small plantar calcaneal spur. There is no acute fracture or dislocation. The joint spaces are intact. The soft tissues are unremarkable. IMPRESSION: Small plantar calcaneal spur. Reviewed, Interpreted and Dictated by Leandro Reeder III, MD Transcribed by Swapnil Connor Authenticated and [facility]
== END ==
PROVIDERS: PCP Physician Assistant; Visit Provider Physician Assistant
DX: M79.671 Pain in right foot (principal); M79.672 Pain in left foot
CPT/HCPCS: 73630

== ENCOUNTER 2022-02-19 08:01 | Emergency (ER) | payer OTHER, SELFPAY ==
[2022-02-19 08:01] VITALS: BP 129/99; PULSE 88; RESP 19; TEMP 36.6; O2SAT 100; BMI 32.8
--- NOTE | 2022-02-19 08:23 | EXP.UTC ---
Discharge Plan Disposition Patient Disposition: Home, Self-Care Condition: Good Prescriptions Prescriptions: New azithromycin [Zithromax] 250 mg tablet 250 mg PO UD DOSE PK Qty: 6 0RF Rx Instructions: Take two (2) tablets today, then one (1) tablet days #2 thru #5 benzonatate [benzonatate] 100 mg capsule 100 mg PO TIDP PRN (Reason: Cough) Qty: 30 0RF methylprednisolone 4 mg Tablets,Dose Pack 4 mg PO DIRECTED Qty: 21 0RF No Action Emgality Syringe 300 mg/3 mL (100 mg/mL x 3) syringe 300 mg SQ QMONTH Qty: 3 3RF Rx Instructions: administer as three 100 mg injections at separate sites desvenlafaxine succinate [Pristiq] 50 mg tablet extended release 24 hr 50 mg PO DAILY Qty: 30 1RF verapamil 180 mg tablet extended release 180 mg PO DAILY Referrals Follow up/Referrals: Juana Cruz PA [Primary Care Provider] - See instructions Activity Restrictions/Add. Instructions Additional Instructions/Restrictions: Drink plenty of fluids. Take tylenol or ibuprofen for pain or fever. Take the medications as directed. Follow up with your regular doctor. GO TO THE ER FOR ANY WORSENING SYMPTOMS Clinical Impressions Clinical Impression: Acute bronchitis, Acute viral syndrome Stand Alone Forms Stand Alone Forms: Work/School Release Instructions Patient Instructions: DI for Acute Bronchitis, Coronavirus Disease 2019, Preventing the Spread of Coronavirus Discharge Instructions Discharge ED Provider: Manjit Goins [facility] HPI General Stated complaint: sore throat,weakness,chest heavy on right side Mode of Arrival: Ambulatory Source of Information: Patient Limitations: No Limitations Time Seen by Provider: 02/19/22 08:23 Description of Symptoms (Recalled from Triage Doc. by RN): KAY, sore throat, chills, weakness. Feels like she cannot take a deep breath, especially on the right side. Hx of pleursy. HEENT Symptoms (Recalled from RN notes): Yes Resp Symptoms (Recalled from RN notes): No Skin Symptoms (Recalled from RN notes): No MS Symptoms (Recalled from RN notes): No Functional Status (Recalled from RN notes): n/a History of Present Illness Provider Complaint: She c/o chest congestion, low grade fever, sinus congestion for the past 3 days. She has a history of asthma. Related Data Home Medications Medication Instructions Recorded Confirmed verapamil 180 mg tablet,extended 180 mg PO DAILY Heart rhythm 02/19/22 02/19/22 release Previous Rx's Medication Instructions Recorded desvenlafaxine succinate 50 mg 50 mg PO DAILY #30 tabs 12/29/21 tablet,extended release 24 hr (Pristiq) galcanezumab-gnlm 300 mg/3 mL (100 300 mg (3 mL) SQ QMONTH #3 mL 01/08/22 mg/mL x 3) subcutaneous syringe (Emgality) azithromycin 250 mg tablet 250 mg PO UD DOSE PK #6 tabs 02/19/22 (Zithromax) benzonatate 100 mg capsule 100 mg PO TIDP PRN Cough #30 caps 02/19/22 methylprednisolone 4 mg tablets in 4 mg PO DIRECTED #21 tabs 02/19/22 a dose pack Allergies Allergy/AdvReac Type Severity Reaction Status Date / Time No Known Allergies Allergy Verified 02/19/22 08:22 Worker's Comp Is this a Worker's Comp case?: No [facility] Disclaimer: The information contained in this section may have been updated after the patient was seen, as this information can be updated by other users. Medical History Abnormal weight Anxiety Asthma BMI 29.0-29.9,adult Cluster headaches Depression Fatigue Migraine Posttraumatic stress disorder Surgical History History of section History of hysterectomy History of tonsillectomy S/P partial hysterectomy Family History Other Cancer Coronary artery disease Diabetes Kidney disease Social History Crystal
[2022-02-19 08:40] VITALS: BP 129/99; PULSE 88; RESP 19; TEMP 36.6; O2SAT 100
== END 2022-02-19 08:40 | disposition home or self-care (01) ==
PROVIDERS: Emergency Provider Nurse Practitioner Family; PCP Physician Assistant
DX: J20.9 Acute bronchitis, unspecified (principal); B34.9 Viral infection, unspecified
CPT/HCPCS: 99212; 99213; C9803; G0463; U0003; U0005

== ENCOUNTER 2022-12-20 14:16 | Emergency (ER) | payer OTHER, SELFPAY ==
[2022-12-20 14:25] VITALS: BP 152/80; PULSE 95; RESP 18; TEMP 36.9; O2SAT 98; BMI 34.0
--- NOTE | 2022-12-20 14:31 | EXP.UTC ---
Discharge Plan Disposition Patient Disposition: Home, Self-Care Condition: Good Prescriptions Prescriptions: New methylprednisolone 4 mg Tablets,Dose Pack 4 mg PO DIRECTED Qty: 21 0RF methocarbamol 500 mg tablet 500 mg PO TID PRN (Reason: muscle spasm) Qty: 30 0RF No Action Emgality Syringe 300 mg/3 mL (100 mg/mL x 3) syringe 300 mg SQ QMONTH Qty: 3 3RF Rx Instructions: administer as three 100 mg injections at separate sites cyclobenzaprine 10 mg tablet 10 mg PO TID PRN (Reason: muscle spasm) Qty: 60 0RF losartan 50 mg tablet 50 mg PO DAILY Qty: 90 1RF phentermine [Adipex-P] 37.5 mg tablet 37.5 mg PO DAILY Qty: 30 0RF Rx Instructions: must administer 30 minutes before or 1-2 hours after breakfast Ubrelvy 100 mg tablet 100 mg PO ONCE Qty: 16 0RF Auvelity 45-105 mg tablet, IR and ER, biphasic 1 tab PO BID Qty: 60 2RF Nurtec ODT 75 mg tablet,disintegrating 75 mg PO DAILY PRN (Reason: migraine headache) Qty: 16 2RF verapamil 180 mg tablet extended release 180 mg PO DAILY Patient Comments: TAKE 1 TABLET BY MOUTH EVERY DAY zolmitriptan 5 mg spray,non-aerosol 1 spray INTRANASAL NEEDED PRN (Reason: migraines) Patient Comments: INSTILL 1 SPRAY INTRANASALLY EVERY 2 HOURS NEEDED FOR HEADACHE. ADMINISTER INTO ONE NOSTRIL ALTERNATING . NO MORE THAN 10 MG / DAY. Referrals Follow up/Referrals: Juana Cruz PA [Primary Care Provider] - See instructions Activity Restrictions/Add. Instructions Additional Instructions/Restrictions: Go home and rest. It would be best if you rested tomorrow too. No heavy lifting. No twisting. Take the oral medications as directed. The muscle relaxer (robaxin-methocarbamol) will make you drowsy, so don't drive or operate heavy machinery after taking it. Don't start the oral steroids (medrol dose pack) until tomorrow, since you had the shots in here today. Follow up with your regular doctor. GO TO THE ER FOR ANY WORSENING SYMPTOMS OR CONCERN, ESPECIALLY BOWEL OR BLADDER ISSUES, SADDLE AREA NUMBNESS, FEVER, ETC Clinical Impressions Clinical Impression: Radicular pain in right arm Instructions Patient Instructions: DI for Arm Pain, Methylprednisolone Injection, Ketorolac Injection Discharge ED Provider: Manjit Goins [facility] General Stated complaint: RT ARM PAIN DOWN ARM AND UP NECK Time Seen by Provider: 12/20/22 14:30 History of Present Illness Provider Complaint: She states that she has had neck pain that radiates down her right arm for the past 4 days. She denies any injury. She has had similar symptoms in the past. Related Data Home Medications Medication Instructions Recorded Confirmed verapamil 180 mg tablet,extended 180 mg PO DAILY 12/20/22 12/20/22 release zolmitriptan 5 mg nasal spray 1 spray intranasal NEEDED PRN 12/20/22 12/20/22 migraines Previous Rx's Medication Instructions Recorded galcanezumab-gnlm 300 mg/3 mL (100 300 mg (3 mL) SQ QMONTH #3 mL 01/08/22 mg/mL x 3) subcutaneous syringe (Emgality) ubrogepant 100 mg tablet (Ubrelvy) 100 mg PO ONCE #16 tabs 09/12/22 dextromethorphan IR 45 1 tab PO BID #60 tabs 10/29/22 mg-bupropion ER 105 mg biphasic tablet (Auvelity) cyclobenzaprine 10 mg tablet 10 mg PO TID PRN muscle spasm #60 11/16/22 tabs losartan 50 mg tablet 50 mg PO DAILY #90 tabs 11/29/22 phentermine 37.5 mg tablet 37.5 mg PO DAILY #30 tabs 11/29/22 (Adipex-P) rimegepant 75 mg disintegrating 75 mg PO DAILY PRN migraine 12/06/22 tablet (Nurtec ODT) headache #16 tabs methocarbamol 500 mg tablet 500 mg PO TID PRN muscle spasm #30 12/20/22 tabs methylprednisolone 4 mg tablets in 4 mg PO DIRECTED #21 tabs 12/20/22 a dose pack Allergies Allergy/AdvReac Type Severity Reaction Status Date / Time lisinopril Allergy Intermediate Rash Verified 12/20/22 14:48 [facility] Disclaimer: The information contained
[2022-12-20 15:40] VITALS: BP 152/80; PULSE 95; RESP 18; TEMP 36.9; O2SAT 98
== END 2022-12-20 15:40 | disposition home or self-care (01) ==
PROVIDERS: Emergency Provider Nurse Practitioner Family; PCP Physician Assistant
DX: M79.601 Pain in right arm (principal); M79.2 Neuralgia and neuritis, unspecified; J45.909 Unspecified asthma, uncomplicated
CPT/HCPCS: 96372; 99212; 99214; G0463

== ENCOUNTER 2022-12-31 09:37 | Emergency (ER) | payer OTHER, SELFPAY ==
[2022-12-31 09:50] VITALS: BP 139/94; PULSE 91; RESP 22; TEMP 36.8; O2SAT 98; BMI 33.7
[2022-12-31 10:17] VITALS: BP 139/94; PULSE 91; RESP 22; TEMP 36.8; O2SAT 98
--- NOTE | 2022-12-31 10:28 | EXP.UTC ---
Discharge Plan Disposition Patient Disposition: Home, Self-Care Condition: Good Prescriptions Prescriptions: No Action losartan 50 mg tablet 50 mg PO DAILY Qty: 90 1RF methocarbamol 500 mg tablet 500 mg PO TID PRN (Reason: muscle spasm) Qty: 30 0RF verapamil 180 mg tablet extended release 180 mg PO DAILY Patient Comments: TAKE 1 TABLET BY MOUTH EVERY DAY phentermine 37.5 mg tablet 37.5 mg PO DAILY Patient Comments: 37.5 mg orally daily; must administer 30 minutes before or 1-2 hours after breakfast zolmitriptan 5 mg spray,non-aerosol 1 spray INTRANASAL Q2HP PRN (Reason: Headache) Patient Comments: INSTILL 1 SPRAY INTRANASALLY EVERY 2 HOURS NEEDED FOR HEADACHE. ADMINISTER INTO ONE NOSTRIL ALTERNATING . NO MORE THAN 10 MG / DAY. Ubrelvy 100 mg tablet 100 mg PO DAILY Nurtec ODT 75 mg tablet,disintegrating 75 mg PO DAILY Auvelity 45-105 mg tablet, IR and ER, biphasic 1 tab PO DAILY Patient Comments: TAKE 1 TABLET BY MOUTH TWICE DAILY Referrals Follow up/Referrals: Juana Cruz PA [Primary Care Provider] - See instructions Activity Restrictions/Add. Instructions Additional Instructions/Restrictions: *Ibuprofen anibal 6 hours with meal as needed for pain/inflammation *Remember you had a Toradol shot in the clinic today, which is similar to Motrin *Not additional anti-inflammatory like motrin, aleve, advil with the above amount of ibuprofen. You can still take Tylenol every 4 hours as needed if you need something else for pain *Ice 20 minutes every 2 hours for the first 48 hours after the initial injury followed by moist heat every 20 minutes 3-4 times a day to affected area *Muscle relaxer every 8 hours as needed for muscle spasms but remember, it WILL cause drowsiness You cannot take it and drive, operate machinery or care for small children. *Keep this area active, no movement leads to more stiffness, However take it easy and avoid heavy lifting pushing or pulling *Follow up with you family doctor if no improvement for further treatment ? Clinical Impressions Clinical Impression: Radicular pain in right arm Instructions Patient Instructions: DI for Muscle Spasm Discharge ED Provider: Bisi Freitas [facility] HPI General Stated complaint: possible pulled neck muscle Mode of Arrival: Ambulatory Source of Information: Patient Limitations: No Limitations Time Seen by Provider: 12/31/22 10:28 Description of Symptoms (Recalled from Triage Doc. by RN): PATIENT C/O MUSCLE PAIN TO NECK, SHOULDERS, AND UPPER ARMS X 2 MONTHS. NO KNOWN INJURY. SHE STATES SHE HAS BEEN TREATED TWICE SINCE THE PAIN STARTED BUT IT KEEPS COMING BACK. SHE REPORTS AN APPOINTMENT WITH ORTHO NEXT SATURDAY HEENT Symptoms (Recalled from RN notes): No Resp Symptoms (Recalled from RN notes): No Skin Symptoms (Recalled from RN notes): No MS Symptoms (Recalled from RN notes): Yes Functional Status (Recalled from RN notes): WNL History of Present Illness Provider Complaint: Patient states that she has seen her family doctor and seen in the [facility] a couple weeks ago for same complaint that has been going on for about 2 mths States that she has been having muscle pain in her shoulder area that wraps around her shoulder blade area and into her right upper arm States she was doing a little better but was vomiting on Saturday and not sure if she may have aggravated it States that she still has flexeril and methocarbamol at home but came in to see if she could get a shot of Toradol and Solumedrol as that helped the last time and she has appointment with Orthopedics next week Related Data Home Medications Medication Instructions Recorded Confirmed dextromethorphan IR 45 1 tab PO DAILY 12/31/22 12/31/22 mg-bupropion ER 105 mg biphasic tablet (Auvelity) phentermine 37.5 mg tablet 37.5 mg PO DAILY 12/31/22 12/31/22 rimegepant 75 mg disintegrati
== END 2022-12-31 11:13 | disposition home or self-care (01) ==
PROVIDERS: Emergency Provider Nurse Practitioner; PCP Physician Assistant
DX: M79.621 Pain in right upper arm (principal); M54.10 Radiculopathy, site unspecified; I10 Essential (primary) hypertension; J45.909 Unspecified asthma, uncomplicated
CPT/HCPCS: 96372; 99212; 99214; G0463

== ENCOUNTER 2023-04-02 10:33 | Outpatient (CLI) | payer OTHER, SELFPAY | END 2023-04-02 23:59 | PROVIDERS: PCP Physician Assistant; Visit Provider Nurse Practitioner Obstetrics & Gynecology | DX: Z11.3 Encounter for screening for infections with a predominantly sexual mode of transmission (principal); Z01.419 Encounter for gynecological examination (general) (routine) without abnormal findings ==

== ENCOUNTER 2023-04-05 11:44 | Outpatient (CLI) | payer OTHER, SELFPAY ==
[2023-04-06 11:28] LABS: Rapid Plasma Reagin Ab Titer Non Reactive titer (NonRea<1:1)
[2023-04-09 10:32] LABS: HIV Screen 4th Generation wRfx Non Reactive; Hepatitis C Antibody Non Reactive
[2023-04-09 10:34] LABS: HSV 2 IgG, Type Spec <0.91
== END 2023-04-05 23:59 ==
LOC: LAB 11:44
PROVIDERS: PCP Physician Assistant; Visit Provider Nurse Practitioner Obstetrics & Gynecology
DX: Z11.3 Encounter for screening for infections with a predominantly sexual mode of transmission (principal); Z11.4 Encounter for screening for human immunodeficiency virus [HIV]
CPT/HCPCS: 36415; 86593; 86695; 86703; 86790; 87380; G0432

== ENCOUNTER 2023-05-06 18:26 | Emergency (ER) | payer OTHER, SELFPAY ==
[2023-05-06 20:10] VITALS: BP 0/0; PULSE 0; RESP 0; TEMP -17.7; TEMP 0
== END 2023-05-06 20:11 | disposition left against medical advice (07) ==
PROVIDERS: Emergency Provider Nurse Practitioner; PCP Physician Assistant
DX: Z53.21 Procedure and treatment not carried out due to patient leaving prior to being seen by health care provider (principal)

== ENCOUNTER 2023-05-08 11:29 | Outpatient (CLI) | payer OTHER, SELFPAY ==
[2023-05-08 11:35] LABS: Basophils # 0.1 K/mm3 (0-0.2); Basophils % 0.7 % (0.1-2.0); Eosinophils # 0.1 K/mm3 (0.0-0.4); Eosinophils % 1.2 % (0.1-12.0); Hematocrit 42.3 % (37.0-47.0); Lymphocytes # 2.4 K/mm3 (0.7-4.5); Lymphocytes % 33.6 % (10-50); Mean Corpuscular Hemoglobin 28.1 pg (27.0-31.2); Mean Corpuscular Volume 85.2 fl (81-99); Mean Platelet Volume 7.6 fl (7.4-10.4); Monocytes # 0.3 K/mm3 (0.1-1.0); Monocytes % 4.8 % (1.7-9.3); Neutrophils # 4.2 K/mm3 (1.8-7.8); Neutrophils % 59.7 % (37.0-80.0); Platelet Count 309 K/mm3 (142-424); Red Blood Count 4.97 M/mm3 (4.20-5.40); Red Cell Distribution Width 13.8 % (11.5-17.5); White Blood Count 7.1 K/mm3 (4.8-10.8)
[2023-05-08 12:23] LABS: Chloride 108 mmol/L (98-107); Potassium 3.7 mmoL/L (3.5-5.1); Sodium 141 mmol/L (136-145)
[2023-05-08 12:25] LABS: Amylase 58 U/L (30-110); Blood Urea Nitrogen 16 mg/dl (7-17); Estimated Glomerular Filt Rate 113 ml/min (>60); GFR (African American) 137 ML/MIN (>60)
[2023-05-08 12:26] LABS: Alanine Aminotransferase 85 U/L (12-78); Albumin Level 4.4 g/dl (3.5-5.0); Albumin/Globulin Ratio 1.8 (1.1-1.8); Alkaline Phosphatase 75 U/L (38-126); Anion Gap 13.7 mEq/L (5-15); Aspartate Amino Transferase 60 U/L (14-36); Bilirubin,Total 0.7 mg/dl (0.2-1.3); Calcium 9.5 mg/dl (8.4-10.2); Carbon Dioxide 23 mmol/L (22.0-30.0); Chol/HDL Ratio 8.7 (1-3.5); Cholesterol 279 mg/dl (140-200); Globulin 2.5 g/dL (1.3-3.2); Glucose 130 mg/dl (74-100); HDL Cholesterol 32 mg/dl (40-60); Lipase 96 U/L (23-300); Total Protein,Serum 6.9 g/dl (6.3-8.2); Triglycerides 256 mg/dl (30-150); VLDL Cholesterol 51 mg/dL (0-40)
[2023-05-08 12:38] LABS: Direct LDL Cholesterol 161.81 mg/dL (100-129)
[2023-05-09 10:59] LABS: HBsAg Screen Negative (Negative); HCV Ab Non Reactive (Non Reactive); Hep A Ab, IGM Negative (Negative); Hep B Core Ab, IgM Negative (Negative)
== END 2023-05-08 23:59 ==
LOC: LAB.DROPOF 11:30
PROVIDERS: PCP Family Medicine; Visit Provider Family Medicine
DX: R10.12 Left upper quadrant pain (principal); R10.9 Unspecified abdominal pain; R11.2 Nausea with vomiting, unspecified; R79.89 Other specified abnormal findings of blood chemistry; K25.9 Gastric ulcer, unspecified as acute or chronic, without hemorrhage or perforation; E66.9 Obesity, unspecified; Z68.37 Body mass index [BMI] 37.0-37.9, adult; Z79.899 Other long term (current) drug therapy
CPT/HCPCS: 80053; 80061; 80074; 82150; 83036; 83690; 85025

== ENCOUNTER 2023-07-11 09:38 | Outpatient (CLI) | payer OTHER, SELFPAY ==
[2023-07-11 19:02] LABS: Basophils # 0.1 K/mm3 (0-0.2); Basophils % 0.8 % (0.1-2.0); Eosinophils # 0.1 K/mm3 (0.0-0.4); Eosinophils % 1.2 % (0.1-12.0); Hematocrit 41.5 % (37.0-47.0); Hemoglobin 13.1 g/dL (12.2-16.2); Lymphocytes # 1.9 K/mm3 (0.7-4.5); Lymphocytes % 32.9 % (10-50); Mean Corpuscular HGB Conc 31.7 g/dL (31.8-35.4); Mean Corpuscular Hemoglobin 28.3 pg (27.0-31.2); Mean Corpuscular Volume 89.2 fl (81-99); Mean Platelet Volume 8.8 fl (7.4-10.4); Monocytes # 0.3 K/mm3 (0.1-1.0); Monocytes % 4.7 % (1.7-9.3); Neutrophils # 3.6 K/mm3 (1.8-7.8); Neutrophils % 60.3 % (37.0-80.0); Platelet Count 302 K/mm3 (142-424); Red Blood Count 4.65 M/mm3 (4.20-5.40); Red Cell Distribution Width 14.6 % (11.5-17.5); White Blood Count 5.9 K/mm3 (4.8-10.8)
[2023-07-11 19:24] LABS: Alanine Aminotransferase 79 U/L (12-78); Albumin Level 4.1 g/dl (3.5-5.0); Albumin/Globulin Ratio 1.7 (1.1-1.8); Alkaline Phosphatase 82 U/L (38-126); Anion Gap 15.8 mEq/L (5-15); Aspartate Amino Transferase 68 U/L (14-36); Bilirubin,Total 0.5 mg/dl (0.2-1.3); Blood Urea Nitrogen 9 mg/dl (7-17); Calcium 9.6 mg/dl (8.4-10.2); Carbon Dioxide 23 mmol/L (22.0-30.0); Chloride 108 mmol/L (98-107); Chol/HDL Ratio 6.4 (1-3.5); Cholesterol 211 mg/dl (140-200); Estimated Glomerular Filt Rate 113 ml/min (>60); GFR (African American) 137 ML/MIN (>60); Globulin 2.4 g/dL (1.3-3.2); Glucose 160 mg/dl (74-100); HDL Cholesterol 33 mg/dl (40-60); Potassium 3.8 mmoL/L (3.5-5.1); Sodium 143 mmol/L (136-145); Total Protein,Serum 6.5 g/dl (6.3-8.2); Triglycerides 381 mg/dl (30-150); VLDL Cholesterol 76 mg/dL (0-40)
[2023-07-11 19:35] LABS: Direct LDL Cholesterol 122.84 mg/dL (100-129)
[2023-07-11 19:47] LABS: 25-OH Vitamin D, Total 18.5 ng/mL (30-100)
[2023-07-11 19:48] LABS: Hemoglobin A1C 5.6 % (4.0-6.0)
[2023-07-11 19:57] LABS: Thyroid Stimulating Hormone 1.79 uIU/mL (0.465-4.68)
== END 2023-07-11 23:59 | disposition home or self-care (01) ==
LOC: LAB.DROPOF 07-13 09:39
PROVIDERS: PCP Physician Assistant; Visit Provider Physician Assistant
DX: R79.89 Other specified abnormal findings of blood chemistry (principal); R10.9 Unspecified abdominal pain; E55.9 Vitamin D deficiency, unspecified; Z79.899 Other long term (current) drug therapy
CPT/HCPCS: 80053; 80061; 82306; 83036; 84443; 85025

== ENCOUNTER 2023-07-29 07:17 | Outpatient (CLI) | payer OTHER, SELFPAY ==
--- NOTE | 2023-07-29 07:18 | US_ITS ---
FINAL REPORT CLINICAL HISTORY: elevated lft COMPARISON: None FINDINGS: Sonographic images of the right upper quadrant were obtained. There is a hypoechoic area anterior to the pancreatic tail which could represent cystic mass measuring up to 3.8 cm. This could also represent fluid-filled bowel. Fatty changes are noted in the liver. The gallbladder is surgically absent. There is no evidence of biliary ductal dilatation.The common duct measures 4 mm. There is an 8 mm hyperechoic area within the anterior right lower kidney which could represent parenchymal calcification or calyceal diverticula with stone. IMPRESSION: Fatty change in the liver. No biliary obstruction. Possible mass versus fluid-filled bowel near the pancreatic tail. Recommend CT with contrast. Reviewed, Interpreted and Dictated by Melani Johnson MD Transcribed by Blanquita Silva Authenticated and [facility]
== END 2023-07-29 23:59 | disposition home or self-care (01) ==
LOC: RAD 07:18
PROVIDERS: PCP Physician Assistant; Visit Provider Physician Assistant
DX: R79.89 Other specified abnormal findings of blood chemistry (principal); R10.9 Unspecified abdominal pain
CPT/HCPCS: 76705

== ENCOUNTER 2023-09-06 06:38 | Outpatient (CLI) | payer OTHER, SELFPAY ==
--- NOTE | 2023-09-06 06:43 | CT_ITS ---
FINAL REPORT TECHNIQUE: Axial CT images of the abdomen were obtained with IV and oral contrast. Coronal reformatted images were also obtained. This study was performed with techniques to keep radiation doses as low as reasonably achievable (ALARA). Individualized dose reduction techniques using automated exposure control or adjustment of mA and/or kV according to the patient''s size were employed. CLINICAL HISTORY: abnormal liver US COMPARISON: Liver ultrasound 07/29/2023 FINDINGS: The lung bases are clear. There is fatty infiltration of the liver. Status post cholecystectomy. There is no evidence of biliary ductal dilatation. There is no evidence of pancreatic or peripancreatic mass. Ultrasound abnormality is presumed to be artifactual in nature. The spleen is borderline enlarged. There is no evidence of renal mass or hydronephrosis. There is no evidence of adenopathy. The bowel is negative. The appendix is normal. IMPRESSION: No evidence of pancreatic or peripancreatic mass. Fatty liver. Borderline splenomegaly. Reviewed, Interpreted and Dictated by Melani Johnson MD Transcribed by Blanquita Silva Authenticated and . [facility]
[2023-09-06 07:16] LABS: Blood Urea Nitrogen 12 mg/dl (7-17); Estimated Glomerular Filt Rate 113 ml/min (>60); GFR (African American) 137 ML/MIN (>60)
[2023-09-06] MEDS: SODIUM CHLORIDE 0.9% 10ML SYR (RAD ONLY) 10 ML IV (09:17)
[2023-09-06] MEDS: IOPAMIDOL-370 (76%);100ML BOTTLE 75 ML IV (09:18)
== END 2023-09-06 23:59 | disposition home or self-care (01) ==
PROVIDERS: PCP Physician Assistant; Visit Provider Family Medicine
DX: R93.2 Abnormal findings on diagnostic imaging of liver and biliary tract (principal)
CPT/HCPCS: 36415; 74160; 82565; 84520; Q9967